=== PATIENT | male | born 1990 | race Caucasian/White ===

== ENCOUNTER 2016-12-25 18:00 | Emergency (ER) | payer OTHER ==
--- NOTE | 2016-12-25 18:40 | ER Document Report ---
ED Medical Screen (RME) - General Stated Complaint: TOOTHACHE Notes: 26 yo male c/o left upper tooth pain x 3 days. no fever. + facial swelling. TRAVEL OUTSIDE OF THE [place] IN LAST 30 DAYS: No Physical Exam - Vital signs Vitals: Temp Pulse Resp BP Pulse Ox 98.4 F 58 L 14 137/73 H 99 12/25/16 18:03 12/25/16 18:03 12/25/16 18:03 12/25/16 18:03 12/25/16 18:03 Course - Vital Signs Vital signs: Temp Pulse Resp BP Pulse Ox 98.4 F 58 L 14 137/73 H 99 12/25/16 18:03 12/25/16 18:03 12/25/16 18:03 12/25/16 18:03 12/25/16 18:03
[2016-12-25] MEDS ORDERED: HYDROCODONE/ACETAMINOPHEN 5-325 MG 6 TAB/DSPK PO PRN (20:14)
[2016-12-25] MEDS ORDERED: AMOXICILLIN TRIHYDRATE 500 MG CAPSULE PO ONE (20:14)
--- NOTE | 2016-12-25 20:18 | ER Document Report ---
HPI - HPI Patient complains to provider of: tooth pain Pain Level: 3 Context: Patient is a 26-year-old male that comes emergency department for chief complaint of tooth pain in his left upper jaw area with slight swelling to the jaw, symptoms started 3 days ago, he has a known fractured tooth, he does not have a dentist or dental insurance. He denies sore throat, neck pain, fever, difficulty opening his mouth. Denies any smoking or any daily medications. - DERM Skin Color: Normal Past Medical History - General Information source: Patient - Social History Smoking Status: Never Smoker Chew tobacco use (# tins/day): No Frequency of alcohol use: None Drug Abuse: None Lives with: Family Family History: Reviewed & Not Pertinent Patient has suicidal ideation: No Patient has homicidal ideation: No - Medical History Medical History: Negative Renal/ Medical History: Denies: Hx Peritoneal Dialysis Surgical Hx: Negative - Immunizations Immunizations up to date: Yes Hx Diphtheria, Pertussis, Tetanus Vaccination: Yes Vertical Provider Document - CONSTITUTIONAL General Appearance: WD/WN, No Apparent Distress - INFECTION CONTROL TRAVEL OUTSIDE OF THE [place] IN LAST 30 DAYS: No - HEENT HEENT: Atraumatic, Normocephalic. negative: Normal ENT Exam - exam other than the tooth fracture and erythematous gumline, normal submandibular tissues Mouth Diagram: 1 - Broken tooth, erythematous gumline, no abscess or other abnormality noted - NECK Neck: Normal Inspection. negative: Lymphadenopathy-Left, Lymphadenopathy-Right - RESPIRATORY Respiratory: Breath Sounds Normal, No Respiratory Distress O2 Sat by Pulse Oximetry: 99 - CARDIOVASCULAR Cardiovascular: Regular Rate, Regular Rhythm - GI/ABDOMEN Gastrointestinal: Abdomen Soft, Abdomen Non-Tender - BACK Back: Normal Inspection - MUSCULOSKELETAL/EXTREMETIES Musculoskeletal/Extremeties: MAEW, FROM, Non-Tender - NEURO Level of Consciousness: Awake, Alert, Appropriate Course - Vital Signs Vital signs: Temp Pulse Resp BP Pulse Ox 98.4 F 58 L 14 137/73 H 99 12/25/16 18:03 12/25/16 18:03 12/25/16 18:03 12/25/16 18:03 12/25/16 18:03 Discharge - Discharge Clinical Impression: Pain, dental, Tooth infection Condition: Stable Disposition: HOME, SELF-CARE Additional Instructions: Take antibiotics as directed, take the pain medication if needed. Follow-up with dentist for treatment of this to prevent this from occurring again. Return to emergency department for any worsening symptoms. Prescriptions: Amoxicillin Trihydrate [Amoxil 500 mg Capsule] 500 mg PO BID #20 cap Hydrocodone/Acetaminophen [[place] 5-325 mg Tablet] 1 - 2 tab PO ASDIR #15 tablet Forms: Return to Work
[2016-12-25 23:56] VITALS: BP 115/70
== END 2016-12-25 20:25 | disposition home or self-care (01) ==
LOC: ER 18:00
DX: K04.7 Periapical abscess without sinus (principal); K08.9 Disorder of teeth and supporting structures, unspecified
CPT/HCPCS: 99282

== ENCOUNTER 2018-02-15 22:19 | Emergency (ER) | payer OTHER ==
[2018-02-16] MEDS ORDERED: CLINDAMYCIN HCL 150 MG CAPSULE PO ONE (00:34)
[2018-02-16] MEDS ORDERED: IBUPROFEN 600 MG TABLET PO ONE (00:37)
[2018-02-16] MEDS ORDERED: ACETAMINOPHEN 325 MG TABLET PO ONE (00:37)
--- NOTE | 2018-02-16 00:39 | ER Document Report ---
ED General - General Chief Complaint: Cough Stated Complaint: COUGH Time Seen by Provider: 02/16/18 00:05 Notes: Patient is a 27 year old male without past medical history who presents with 2 complaints. His main concern is that he has a severe, constant throbbing pain to his right upper molar with associated facial swelling. He reports that he has been trying Tylenol for pain without improvement. Eating or drinking worsens the pain. The symptoms have been ongoing for at least the past 4-5 days. He has not seen a dentist regarding this concern. He denies any fever, difficulty swallowing or breathing. Patient also reports that he is symptoms consistent with an upper respiratory infection. He notes nasal congestion, cough, clear sputum production, and fatigue. He states this feels very similar when he had viral infections in the past. He has not seen his general doctor regarding these concerns. He has not had any fever or constitutional symptoms. TRAVEL OUTSIDE OF THE [place] IN LAST 30 DAYS: No - Related Data Allergies/Adverse Reactions: No Known Allergies Allergy (Verified 12/25/16 18:39) Past Medical History - General Information source: Patient - Social History Smoking Status: Never Smoker Frequency of alcohol use: None Drug Abuse: None Lives with: Family Family History: Reviewed & Not Pertinent Renal/ Medical History: Denies: Hx Peritoneal Dialysis - Immunizations Immunizations up to date: Yes Hx Diphtheria, Pertussis, Tetanus Vaccination: Yes Review of Systems - Review of Systems Notes: Constitutional: Negative for fever. HENT: Positive for dental pain Eyes: Negative for visual changes. Cardiovascular: Negative for chest pain. Respiratory: Negative for shortness of breath. Positive for cough Gastrointestinal: Negative for abdominal pain, vomiting or diarrhea. Genitourinary: Negative for dysuria. Musculoskeletal: Negative for back pain. Skin: Negative for rash. Neurological: Negative for headaches, weakness or numbness. 10 point ROS negative except as marked above and in HPI. Physical Exam - Vital signs Vitals: Temp Pulse Resp BP Pulse Ox 98.3 F 63 16 143/84 H 99 02/15/18 22:33 02/15/18 22:33 02/15/18 22:33 02/15/18 22:33 02/15/18 22:33 Interpretation: Normal Notes: PHYSICAL EXAMINATION: GENERAL: Well-appearing, well-nourished and in no acute distress. HEAD: Atraumatic, normocephalic. EYES: Pupils equal round and reactive to light, extraocular movements intact, sclera anicteric, conjunctiva are normal. ENT: nares patent, tooth #2 is cracked with small amount of gum swelling but no evidence of an apical abscess, oropharynx clear without exudates. Moist mucous membranes. Mild swelling of the maxillary sinus. NECK: Normal range of motion, supple without lymphadenopathy LUNGS: Breath sounds clear to auscultation bilaterally and equal. No wheezes rales or rhonchi. HEART: Regular rate and rhythm without murmurs ABDOMEN: Soft, nontender, normoactive bowel sounds. No guarding, no rebound. No masses appreciated. EXTREMITIES: Normal range of motion, no pitting or edema. No cyanosis. NEUROLOGICAL: No focal neurological deficits. Moves all extremities spontaneously and on command. PSYCH: Normal mood, normal affect. SKIN: Warm, Dry, normal turgor, no rashes or lesions noted. Course - Re-evaluation Re-evalutation: 02/16/18 00:37 Presentation is most consistent with a viral upper respiratory infection. Patient is overall well appearance, vitals within normal limits, well-hydrated. Patient denies any headache, neck pain, and has no evidence of meningismus on examination. Lungs are clear bilaterally. No evidence of respiratory distress. Based on clinical exam and history, I do not suspect an acute pneumonia, meningitis, strep pharyngitis, or an acute encephalitis. No laboratory or imaging testing is indicated at this time. Patient is also complaining of some right upper posterior molar dental pain. Tooth #2 is cracked and there is a mild amount of right maxillary facial swelling without evidence of a facial cellulitis, facial abscess, oropharyngeal edema or airway compromise. Patient will be started on clindamycin for this infection has been instructed to follow-up with dentistry. At this time will discharge with return precautions and follow-up recommendations. Verbal discharge instructions given a the bedside and opportunity for questions given. Medication warnings reviewed. Patient is in agreement with this plan and has verbalized understanding of return precautions and the need for primary care follow-up in the next 24-72 hours. - Vital Signs Vital signs: Temp Pulse Resp BP Pulse Ox 98.2 F 68 20 139/91 H 99 02/16/18 00:45 02/16/18 00:45 02/16/18 00:45 02/16/18 00:45 02/16/18 00:45 Discharge - Discharge Clinical Impression: Pain, dental, Dental infection Upper respiratory infection Qualifiers: URI type: unspecified URI Qualified Code(s): J06.9 - Acute upper respiratory infection, unspecified Condition: Good Disposition: HOME, SELF-CARE Additional Instructions: Your symptoms are most likely due to a viral infection it should resolve over the next 7-14 days. You should take [id number] guanfacine per bottle instructions to help thin the mucus. For nasal congestion: I would recommend that you get [id number] oxymetazoline also known is afrin. Use only per bottle instructions and be sure to never use this for more than 3 days if you can develop severe rebound congestion. You may also use tylenol or ibuprofen as needed for aches and thorat discomfort. Please be sure to drink plenty of fluids and get rest. Return to the emergency department he began having difficulty breathing, chest pain, persistent vomiting, or any other symptoms that are concerning to you. You have been seen for dental pain. It is very important that you follow-up with a dentist for definitive care. Please return if you develop fever greater than 101, swelling in your face, vomiting, difficulty breathing or swallowing, or any other symptoms that are concerning to you. For pain you should take ibuprofen 600 mg every 6 hours as needed. Prescriptions: Clindamycin HCl 300 mg PO TID #30 capsule Forms: Return to Work
[2018-02-16 00:50] VITALS: BP 139/91
== END 2018-02-16 00:53 | disposition home or self-care (01) ==
LOC: ER 22:19
DX: K04.7 Periapical abscess without sinus (principal); K08.89 Other specified disorders of teeth and supporting structures; J06.9 Acute upper respiratory infection, unspecified; R05 Cough; R09.81 Nasal congestion; R53.83 Other fatigue
CPT/HCPCS: 99283

== ENCOUNTER 2018-08-09 14:45 | Emergency (ER) | payer SELFPAY ==
[2018-08-09 14:49] VITALS: BP 143/90
--- NOTE | 2018-08-09 15:16 | ER Document Report ---
HPI - HPI Patient complains to provider of: Dental pain Onset/Duration: Persistent Quality of pain: Achy Pain Level: 2 Context: Patient presents complaining of right lower dental pain for the past 3 days. Patient denies any fever. Associated Symptoms: Other - Dental pain. denies: Fever Exacerbated by: Denies Relieved by: Denies Similar symptoms previously: Yes Recently seen / treated by doctor: No - ROS ROS below otherwise negative: Yes Systems Reviewed and Negative: Yes All other systems reviewed and negative - CONSTITUTIONAL Constitutional: DENIES: Fever - GASTROINTESTINAL Gastrointestinal: DENIES: Nausea, Patient vomiting - DERM Skin Color: Normal Skin Problems: None Past Medical History - General Information source: Patient - Social History Smoking Status: Current Every Day Smoker Smoking Education Provided: Yes Frequency of alcohol use: None Drug Abuse: None Occupation: Foodservice Family History: Reviewed & Not Pertinent - Medical History Medical History: Negative Renal/ Medical History: Denies: Hx Peritoneal Dialysis Surgical Hx: Negative - Immunizations Immunizations up to date: Yes Hx Diphtheria, Pertussis, Tetanus Vaccination: Yes Vertical Provider Document - CONSTITUTIONAL Agree With Documented VS: Yes Exam Limitations: No Limitations General Appearance: WD/WN, No Apparent Distress - INFECTION CONTROL TRAVEL OUTSIDE OF THE [place] IN LAST 30 DAYS: No - HEENT HEENT: Atraumatic, Normocephalic Mouth Diagram: 1 - Tender, dental fracture, no gingival abscess, no trismus 2 - Mild tenderness, no abscess - NECK Neck: Normal Inspection, Supple. negative: Lymphadenopathy-Left, Lymphadenopathy-Right - RESPIRATORY Respiratory: Breath Sounds Normal, No Respiratory Distress, Chest Non-Tender - CARDIOVASCULAR Cardiovascular: Regular Rate, Regular Rhythm, No Murmur - BACK Back: Normal Inspection - MUSCULOSKELETAL/EXTREMETIES Musculoskeletal/Extremeties: MAEW - NEURO Level of Consciousness: Awake, Alert, Appropriate Motor/Sensory: No Motor Deficit - DERM Integumentary: Warm, Dry, No Rash Course - Vital Signs Vital signs: Temp Pulse Resp BP Pulse Ox 98.1 F 77 16 143/90 H 96 08/09/18 14:48 08/09/18 14:48 08/09/18 14:48 08/09/18 14:48 08/09/18 14:48 Discharge - Discharge Clinical Impression: Toothache Condition: Stable Disposition: HOME, SELF-CARE Instructions: Penicillin V K ([facility]), Toothache ([facility]), Ultram ([facility]) Additional Instructions: Return immediately for any new or worsening symptoms Followup with your primary care provider, call tomorrow to make a followup appointment Follow-up with a dental care provider for recheck Prescriptions: Naproxen [Naprosyn 250 Nmg Tablet] 1 tab PO BID #14 tablet Penicillin V Potassium [Penicillin Vk 500 mg Tablet] 500 mg PO BID #20 tablet Tramadol HCl [Ultram 50 mg Tablet] 50 mg PO ASDIR PRN #15 tablet PRN Reason: Forms: Smoking Cessation Education Referrals: [facility] [Provider Group] - Follow up as needed
== END 2018-08-09 15:30 | disposition home or self-care (01) ==
LOC: ER 14:45
DX: K08.89 Other specified disorders of teeth and supporting structures (principal); F17.200 Nicotine dependence, unspecified, uncomplicated
CPT/HCPCS: 99282

== ENCOUNTER 2018-09-12 18:07 | Emergency (ER) | payer SELFPAY ==
[2018-09-12 18:13] VITALS: BP 141/84
--- NOTE | 2018-09-20 09:32 | ER Document Report ---
ED Oral Problem - General Chief Complaint: Toothache Stated Complaint: TOOTH PAIN Time Seen by Provider: 09/12/18 18:32 Mode of Arrival: Ambulatory Information source: Patient TRAVEL OUTSIDE OF THE [place] IN LAST 30 DAYS: No - HPI Patient complains to provider of: Toothache Onset: Yesterday - Related Data Allergies/Adverse Reactions: No Known Allergies Allergy (Verified 09/12/18 18:28) Past Medical History - Social History Smoking Status: Current Every Day Smoker Chew tobacco use (# tins/day): No Frequency of alcohol use: None Drug Abuse: None Family History: Reviewed & Not Pertinent Patient has suicidal ideation: No Patient has homicidal ideation: No Renal/ Medical History: Denies: Hx Peritoneal Dialysis Psychiatric Medical History: Reports: Hx Attention Deficit Hyperactivity Disorder, Hx Depression - Immunizations Immunizations up to date: Yes Hx Diphtheria, Pertussis, Tetanus Vaccination: Yes Review of Systems - Review of Systems Constitutional: No symptoms reported EENT: See HPI, Dental problem Respiratory: No symptoms reported Gastrointestinal: No symptoms reported -: Yes All other systems reviewed and negative Physical Exam - Vital signs Vitals: Temp Pulse Resp BP Pulse Ox 98.1 F 70 18 141/84 H 98 09/12/18 18:11 09/12/18 18:11 09/12/18 18:11 09/12/18 18:11 09/12/18 18:11 - General General appearance: Appears well In distress: None - HEENT Mouth/Lips: Other - L upper molar with TTP and large cavity Mucous membranes: Normal Pharynx: Normal Neck: Normal Course - Vital Signs Vital signs: Temp Pulse Resp BP Pulse Ox 98.1 F 70 18 141/84 H 98 09/12/18 18:11 09/12/18 18:11 09/12/18 18:11 09/12/18 18:11 09/12/18 18:11 Discharge - Discharge Clinical Impression: Dentalgia, Tooth caries Condition: Stable Disposition: HOME, SELF-CARE Instructions: [facility], Toothache ([facility]) Additional Instructions: rest, take meds as prescribed, return if worse Prescriptions: Amoxicillin Trihydrate [Amoxil 500 mg Capsule] 500 mg PO TID #30 capsule Etodolac [Lodine] 400 mg PO BID #20 tablet Forms: Return to Work
== END 2018-09-12 18:47 | disposition home or self-care (01) ==
LOC: ER 18:07
DX: K02.9 Dental caries, unspecified (principal); K08.89 Other specified disorders of teeth and supporting structures; F17.200 Nicotine dependence, unspecified, uncomplicated
CPT/HCPCS: 99282